=== PATIENT | male | born 1990 | race Caucasian/White ===

== ENCOUNTER 2017-04-15 08:46 | Emergency (ER) | payer OTHER, BC ==
[~2017-04-15] VITALS: Ht 180.3 cm; Wt 81.6 kg
== END 2017-04-15 10:10 | disposition short-term general hospital (02) ==
LOC: ER 08:46
DX: T67.9XXA Effect of heat and light, unspecified, initial encounter (principal); E87.6 Hypokalemia; R73.9 Hyperglycemia, unspecified; F41.9 Anxiety disorder, unspecified; Z87.891 Personal history of nicotine dependence